=== PATIENT | female | born 1995 | race American Indian/Alaskan Native ===

== ENCOUNTER 2019-11-23 00:07 | Emergency (ER) | payer SELFPAY ==
[2019-11-23 00:23] VITALS: BP 126/77
--- NOTE | 2019-11-23 04:25 | Emergency Department Report ---
Chief Complaint: Burn/Smoke Inhalation Stated Complaint: BURN RIGHT SIDE OF FACE Time Seen by Provider: 11/23/19 04:15 - HPI History of Present Illness: 24-year-old -[place] female presents to the emergency room complaining of burn on her right side of her face and chest. Patient states that she was tending to a grill when the hamburger grease had popped in her face and on her chest while she was grilling 20 minutes prior to arrival. Patient states that she did place ice on her wound. Patient states that the pain is minimum. - Exam Vital Signs: Vital Signs 11/23/19 00:11 Temperature 98.2 F Pulse Rate 78 Respiratory 20 Rate Blood Pressure 126/77 O2 Sat by Pulse 99 Oximetry Physical Exam: Patient is alert and oriented x3 no acute distress nontoxic in appearance Face multiple hyper pigmented spots on face no blistering appreciated nonerythematous no swelling. MSE screening note: Focused history and physical exam performed. Due to findings the following was ordered: 24-year-old -[place] female presents to the emergency room complaining of burn on her right side of her face and chest. Patient states that she was tending to a grill when the hamburger grease had popped in her face and on her chest while she was grilling 20 minutes prior to arrival. Patient states that she did place ice on her wound. Patient states that the pain is minimum. Recommend pain control. Keep your face clean and dry do not put any oil-based creams on your face. Follow-up with your primary care provider. ED Disposition for MSE Disposition: Z- MED SCREENING EXAM-LEFT Is pt being admited?: No Does the pt Need Aspirin: No Condition: Stable Instructions: Superficial Burn (ED) Additional Instructions: Keep face clean and dry avoid Oil base creams to the face and chest as they are exposed to sunlight and will cause further burning. Follow-up with a primary care provider if any further concerns. Tylenol or ibuprofen as needed for pain management Referrals: PRIMARY CARE [Primary Care Provider] - 3-5 Days [facility] [Provider Group] - 3-5 Days Forms: Work/School Release Form(ED)
== END 2019-11-23 04:21 | disposition left against medical advice (07) ==
LOC: ED 00:07
DX: T20.00XA Burn of unspecified degree of head, face, and neck, unspecified site, initial encounter (principal); T21.01XA Burn of unspecified degree of chest wall, initial encounter; Z53.21 Procedure and treatment not carried out due to patient leaving prior to being seen by health care provider; X08.8XXA Exposure to other specified smoke, fire and flames, initial encounter; Y93.89 Activity, other specified; Y92.89 Other specified places as the place of occurrence of the external cause; Y99.8 Other external cause status

== ENCOUNTER 2020-02-17 14:11 | Emergency (ER) | payer SELFPAY ==
--- NOTE | 2020-02-17 19:24 | Emergency Department Report ---
ED ENT HPI - General Chief complaint: Dental/Oral Stated complaint: TOOTH ACHE/EAR PAIN Time Seen by Provider: 02/17/20 18:58 Source: patient Mode of arrival: Ambulatory Limitations: No Limitations - History of Present Illness MD complaint: tooth pain Location: tooth # Severity: mild, moderate Quality: aching, dull Consistency: constant Improves with: none Worsens with: eating Context- Dental: history of dental caries Associated Symptoms: toothache. denies: sore throat, tinnitus, rhinorrhea - Related Data Previous Rx's Medication Instructions Recorded Last Taken Type Amoxicillin [Amoxicillin TAB] 875 mg PO BID #20 tablet 02/17/20 Unknown Rx Chlorhexidine Mouthwash [Peridex] 15 ml MM BID #1 bottle 02/17/20 Unknown Rx Lidocaine Viscous 2% 5 ml MM Q3H PRN #120 udc 02/17/20 Unknown Rx Allergies Allergy/AdvReac Type Severity Reaction Status Date / Time No Known Allergies Allergy Unverified 11/23/19 00:22 ED Dental HPI - General Chief complaint: Dental/Oral Stated complaint: TOOTH ACHE/EAR PAIN Time Seen by Provider: 02/17/20 18:58 Source: patient Mode of arrival: Ambulatory Limitations: No Limitations - Related Data Previous Rx's Medication Instructions Recorded Last Taken Type Amoxicillin [Amoxicillin TAB] 875 mg PO BID #20 tablet 02/17/20 Unknown Rx Chlorhexidine Mouthwash [Peridex] 15 ml MM BID #1 bottle 02/17/20 Unknown Rx Lidocaine Viscous 2% 5 ml MM Q3H PRN #120 udc 02/17/20 Unknown Rx Allergies Allergy/AdvReac Type Severity Reaction Status Date / Time No Known Allergies Allergy Unverified 11/23/19 00:22 ED Review of Systems ROS: Stated complaint: TOOTH ACHE/EAR PAIN Other details as noted in HPI Comment: All other systems reviewed and negative ED Past Medical Hx - Past Medical History Previous Medical History?: No - Social History Smoking Status: Never Smoker Substance Use Type: None - Medications Home Medications: Home Medications Medication Instructions Recorded Confirmed Last Taken Type Amoxicillin [Amoxicillin TAB] 875 mg PO BID #20 tablet 02/17/20 Unknown Rx Chlorhexidine Mouthwash [Peridex] 15 ml MM BID #1 bottle 02/17/20 Unknown Rx Lidocaine Viscous 2% 5 ml MM Q3H PRN #120 udc 02/17/20 Unknown Rx ED Physical Exam - General Limitations: No Limitations General appearance: alert, in no apparent distress - Head Head exam: Present: atraumatic, normocephalic - Eye Eye exam: Present: normal appearance, PERRL, EOMI Pupils: Present: normal accommodation - ENT ENT exam: Present: normal orophraynx, mucous membranes moist, TM's normal bilaterally, other (Tenderness to tooth #31 with some adjacent erythema no abscess noted tongue and uvula are midline airways patent.) - Neck Neck exam: Present: normal inspection, lymphadenopathy - Respiratory Respiratory exam: Present: normal lung sounds bilaterally. Absent: respiratory distress - Cardiovascular Cardiovascular Exam: Present: regular rate, normal rhythm. Absent: systolic murmur, diastolic murmur, rubs, gallop - GI/Abdominal GI/Abdominal exam: Present: soft, normal bowel sounds - Extremities Exam Extremities exam: Present: normal inspection - Back Exam Back exam: Present: normal inspection - Neurological Exam Neurological exam: Present: alert, oriented X3 - Psychiatric Psychiatric exam: Present: normal affect, normal mood - Skin Skin exam: Present: warm, dry, intact, normal color. Absent: rash ED Course Vital Signs 02/17/20 14:57 Temperature 98.8 F Pulse Rate 80 Respiratory 20 Rate Blood Pressure 119/54 [Right] O2 Sat by Pulse 98 Oximetry Critical care attestation.: If time is entered above; I have spent that time in minutes in the direct care of this critically ill patient, excluding procedure time. ED Disposition Clinical Impression: Dentalgia, Infected dental caries Disposition: DC-01 TO HOME OR SELFCARE Is pt being admited?: No Does the pt Need Aspirin: No Condition: Stable Instructions: Toothache (ED), Dental Caries (ED) Prescriptions: Amoxicillin [Amoxicillin TAB] 875 mg PO BID #20 tablet Lidocaine Viscous 2% 5 ml MM Q3H PRN #120 udc PRN Reason: Pain, Moderate (4-6) Chlorhexidine Mouthwash [Peridex] 15 ml MM BID #1 bottle Referrals: PRIMARY CARE, [Primary Care Provider] - 3-5 Days [facility] [Provider Group] - 3-5 Days
[2020-02-17 19:46] VITALS: BP 110/68
== END 2020-02-17 19:45 | disposition home or self-care (01) ==
LOC: ED 14:11
DX: K02.9 Dental caries, unspecified (principal); K08.89 Other specified disorders of teeth and supporting structures; Z79.899 Other long term (current) drug therapy
CPT/HCPCS: 99282

== ENCOUNTER 2020-12-26 22:38 | Emergency (ER) | payer MEDICAID, MEDICARE ==
[2020-12-27 02:36] VITALS: BP 125/71
--- NOTE | 2020-12-27 03:06 | XRay Report ---
CHEST 2 VIEWS INDICATION / CLINICAL INFORMATION: chestpain. FINDINGS: SUPPORT DEVICES: None. HEART / MEDIASTINUM: No significant abnormality. LUNGS / PLEURA: No significant pulmonary or pleural abnormality. No pneumothorax. ADDITIONAL FINDINGS: No significant additional findings. IMPRESSION: 1. No acute findings. Signer Name: Leandro Leija MD Signed: 12/27/2020 3:02 AM Workstation Name: [id number]
--- NOTE | 2020-12-30 13:22 | Electrocardiograph Report ---
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
== END 2020-12-27 06:27 | disposition home or self-care (01) ==
LOC: ED 22:38
DX: R07.9 Chest pain, unspecified (principal); Z53.21 Procedure and treatment not carried out due to patient leaving prior to being seen by health care provider
CPT/HCPCS: 71046; 93005; 99283

== ENCOUNTER 2021-02-16 19:51 | Emergency (ER) | payer MEDICAID, OTHER ==
[2021-02-16] MEDS ORDERED: ONDANSETRON 4 MG/2 ML INJ IV ONE (20:54)
[2021-02-16] MEDS ORDERED: SODIUM CHLORIDE 0.9% 1000 ML 1,000 ML IV ONE (20:54)
--- NOTE | 2021-02-16 20:58 | Emergency Department Report ---
ED General Adult HPI - General Chief complaint: Nausea/Vomiting/Diarrhea Stated complaint: VOMITING STOMACH VIRUS Time Seen by Provider: 02/16/21 20:14 Source: patient Mode of arrival: Ambulatory Limitations: No Limitations - History of Present Illness Initial comments: 25-year-old -[place] female patient presents with complaints of nausea, vomiting, and diarrhea x2 days. Patient states her symptoms [place] She denies any hematemesis/coffee-ground emesis, melena/hematochezia, fever/chills/sweats, chest pain, cough, or loss of taste or smell. No history of abdominal surgeries per patient. She admits to mild abdominal cramping and rates it as a 2/10 in severity. She has not tried any OTC medications for symptoms. - Related Data Previous Rx's Medication Instructions Recorded Last Taken Type Amoxicillin [Amoxicillin TAB] 875 mg PO BID #20 tablet 02/17/20 Unknown Rx Chlorhexidine Mouthwash [Peridex] 15 ml MM BID #1 bottle 02/17/20 Unknown Rx Lidocaine Viscous 2% 5 ml MM Q3H PRN #120 udc 02/17/20 Unknown Rx Ketorolac [Toradol] 10 mg PO Q6H PRN #14 tablet 12/27/20 Unknown Rx Loperamide [Imodium] 2 mg PO Q2HR PRN #8 capsule 02/16/21 Unknown Rx Ondansetron [Zofran Odt] 4 mg PO Q8HR PRN #12 tab.rapdis 02/16/21 Unknown Rx Allergies Allergy/AdvReac Type Severity Reaction Status Date / Time No Known Allergies Allergy Verified 02/16/21 20:09 ED Review of Systems ROS: Stated complaint: VOMITING STOMACH VIRUS Other details as noted in HPI Constitutional: denies: chills, diaphoresis, fever, malaise, weakness Respiratory: denies: cough, shortness of breath Cardiovascular: denies: chest pain Gastrointestinal: abdominal pain, nausea, vomiting, diarrhea. denies: constipation, hematemesis, melena, hematochezia Genitourinary: denies: urgency, dysuria, frequency, hematuria Musculoskeletal: denies: back pain Neurological: denies: headache Hematological/Lymphatic: denies: easy bleeding, swollen glands ED Past Medical Hx - Social History Smoking Status: Never Smoker Substance Use Type: None - Medications Home Medications: Home Medications Medication Instructions Recorded Confirmed Last Taken Type Amoxicillin [Amoxicillin TAB] 875 mg PO BID #20 tablet 02/17/20 Unknown Rx Chlorhexidine Mouthwash [Peridex] 15 ml MM BID #1 bottle 02/17/20 Unknown Rx Lidocaine Viscous 2% 5 ml MM Q3H PRN #120 udc 02/17/20 Unknown Rx Ketorolac [Toradol] 10 mg PO Q6H PRN #14 tablet 12/27/20 Unknown Rx Loperamide [Imodium] 2 mg PO Q2HR PRN #8 capsule 02/16/21 Unknown Rx Ondansetron [Zofran Odt] 4 mg PO Q8HR PRN #12 tab.rapdis 02/16/21 Unknown Rx ED Physical Exam - General Limitations: No Limitations General appearance: alert, in no apparent distress - Head Head exam: Present: atraumatic, normocephalic - Eye Eye exam: Present: normal appearance. Absent: scleral icterus - Respiratory Respiratory exam: Present: normal lung sounds bilaterally. Absent: respiratory distress - Cardiovascular Cardiovascular Exam: Present: regular rate, normal rhythm - GI/Abdominal GI/Abdominal exam: Present: soft, tenderness (Minimal periumbilical without guarding or rebound), normal bowel sounds. Absent: distended, rigid - Expanded GI/Abdominal Exam Expanded GI/Abdominal exam: Absent: Price's sign, tenderness at [place]bur[place]'s Point - Neurological Exam Neurological exam: Present: alert, oriented X3, normal gait - Psychiatric Psychiatric exam: Present: normal affect, normal mood - Skin Skin exam: Present: warm, dry, intact, normal color. Absent: rash ED Course Vital Signs 02/16/21 02/16/21 02/16/21 20:04 21:23 21:25 Temperature 98.8 F 97.6 F 97.6 F Pulse Rate 98 H 65 65 Respiratory 18 12 12 Rate Blood Pressure 122/70 111/70 Blood Pressure 122/70 [Right] O2 Sat by Pulse 97 99 99 Oximetry ED Medical Decision Making - Lab Data Result diagrams: 02/16/21 21:05 02/16/21 21:05 Lab Results 02/16/21 02/16/21 02/16/21 Range/Units 21:05 21:05 21:05 WBC 7.4 (4.5-11.0) K/mm3 RBC 4.75 (3.65-5.03) M/mm3 Hgb 16.7 H (10.1-14.3) gm/dl Hct 48.0 H (30.3-42.9) % MCV 101 H (79-97) fl MCH 35 H (28-32) pg MCHC 35 H (30-34) % RDW 13.1 L (13.2-15.2) % Plt Count 190 (140-440) K/mm3 Lymph % (Auto) Quality Control Technician [place] % (Auto) Quality Control Technician Eos % (Auto) Quality Control Technician Baso % (Auto) Quality Control Technician Lymph # (Auto) Quality Control Technician [place] # (Auto) Quality Control Technician Eos # (Auto) Quality Control Technician Baso # (Auto) Quality Control Technician Seg Neutrophils % Quality Control Technician Seg Neutrophils # Quality Control Technician Sodium 140 (137-145) mmol/L Potassium 3.9 (3.6-5.0) mmol/L Chloride 104.4 (98-107) mmol/L Carbon Dioxide 23 (22-30) mmol/L Anion Gap 17 mmol/L BUN 10 (7-17) mg/dL Creatinine 0.6 (0.6-1.2) mg/dL Estimated GFR > 60 ml/min BUN/Creatinine Ratio 17 % Glucose 68 (65-100) mg/dL Calcium 9.7 (8.4-10.2) mg/dL Total Bilirubin 0.50 (0.1-1.2) mg/dL AST 22 (5-40) units/L ALT 17 (7-56) units/L Alkaline Phosphatase 82 (35-129) units/L Total Protein 8.3 H (6.3-8.2) g/dL Albumin 4.9 (3.9-5) g/dL Albumin/Globulin Ratio 1.4 % Lipase 37 (13-60) units/L HCG, Qual Negative (Negative) - Medical Decision Making 25-year-old -[place] female patient presents with complaints of nausea, vomiting, and diarrhea x2 days. Patient states her symptoms began [place] the airport[place] She denies any hematemesis/coffee-ground emesis, mojgan na/hematochezia, fever/chills/sweats, chest pain, cough, or loss of taste or smell. No history of abdominal surgeries per patient. She admits to mild abdominal cramping and rates it as a 2/10 in severity. She has not tried any OTC medications for symptoms. No abdominal tenderness to palpation noted on exam. Mild elevation in hemoglobin noted, labs are otherwise without significant abnormalities. Patient given Zofran and 1 L normal saline. She is not tolerating fluids p.o. Her vitals are normal and she is well-appearing. Will treat for viral gastroenteritis. Recommend patient follows up with her primary care doctor in 3 to 5 days. Discussed importance of hydration, care plan, and signs and symptoms that should prompt immediate return to the ED patient who verbalized understanding. She is to have repeat labs with her primary care provider. Critical care attestation.: If time is entered above; I have spent that time in minutes in the direct care of this critically ill patient, excluding procedure time. ED Disposition Clinical Impression: Nausea vomiting and diarrhea Disposition: 01 HOME / SELF CARE / HOMELESS Is pt being admited?: No Condition: Stable Instructions: Viral Gastroenteritis, Adult Additional Instructions: No significant abnormalities are noted on your labs today. Please hydrate with with water and Pedialyte. If you develop new or worsening [facility] Follow-up with your primary care doctor in 3 to 5 days. Prescriptions: Loperamide [Imodium] 2 mg PO Q2HR PRN #8 capsule PRN Reason: Diarrhea Ondansetron [Zofran Odt] 4 mg PO Q8HR PRN #12 tab.rapdis PRN Reason: Nausea Referrals: PRIMARY CARE, [Primary Care Provider] - 3-5 Days Forms: Work/School Release Form(ED)
[2021-02-16 21:26] VITALS: BP 111/70
[2021-02-16 21:33] LABS: Alanine Aminotransferase 17 units/L (7-56); Albumin 4.9 g/dL (3.9-5); Blood Urea Nitrogen 10 mg/dL (7-17); Calcium 9.7 mg/dL (8.4-10.2); Hemolysis Index 57
[2021-02-16 21:34] LABS: BUN/Creatinine Ratio 17
[2021-02-16 21:51] LABS: Hemoglobin 16.7 gm/dl (10.1-14.3); Mean Corpuscular HGB Conc 35 % (30-34); Mean Corpuscular Volume 101 fl (79-97); Platelet Count 190 K/mm3 (140-440); Red Blood Count 4.75 M/mm3 (3.65-5.03); Red Cell Distribution Width 13.1 % (13.2-15.2)
[2021-02-16 22:31] LABS: Bilirubin,Urine NEG (Negative); Blood,Urine NEG (Negative); Color,Urine Yellow (Yellow); Mucus,Urine 3+ /HPF
== END 2021-02-16 22:31 | disposition home or self-care (01) ==
LOC: ED 19:51
DX: R11.2 Nausea with vomiting, unspecified (principal); R19.7 Diarrhea, unspecified
CPT/HCPCS: 36415; 80053; 81001; 83690; 84703; 85025; 96361; 96374; 99283; J2405; J7030